=== PATIENT | male | born 1945 | race Caucasian/White ===

== ENCOUNTER 2016-08-16 01:27 | Day surgery (SDC) | payer MEDICARE ==
[~2016-08-16] VITALS: Ht 177.8 cm; Wt 106.8 kg
[~2016-08-16 01:27] MED LIST: ACET325T51 PO; ASCO100089 PO; BIOT5CAP9 PO; CARB1TAB37 PO; CARV25TA2 PO; CHOL5000 PO; DOCU250C2 PO; FINA5TAB9 PO; FOLI0.8T PO; HYDR25TA4 PO; OMEG-38 PO; POTA10TA7 PO; TEST200V IM; TEST200V20 IM; TOLT4CAP13 PO; WARF2.5T82 PO; WARF5TAB7 PO; ZYL100 PO; [UNRECOGNIZED DRUG - CODE] MC
[2016-08-16] MEDS ORDERED: Sodium Chloride LOK Flush 10 mL Syringe IV PRN (06:00)
[2016-08-16] MEDS ORDERED: 0.9% Sodium Chloride 1,000 ML IV SCH (06:00)
[2016-08-16] MEDS ORDERED: fentaNYL-PF 50 mCg/mL 2 mL Inj IVPUSH PRN (06:00)
[2016-08-16 07:23] VITALS: BP 171/111; PULSE 69; RESP 14; O2SAT 97
[2016-08-16] MEDS ORDERED: ALBU8.5H2 INHALATION (07:33)
[2016-08-16 07:41] VITALS: BP 161/98
[2016-08-16 08:40] VITALS: BP 154/100; PULSE 76; RESP 16; O2SAT 93
[2016-08-16 08:50] VITALS: BP 161/97; PULSE 73; RESP 16; O2SAT 96
--- NOTE | 2016-08-16 20:18 | ENDO ---
[address] [address] ENDOSCOPY PROCEDURE PATIENT: RAVI GREEN : 1945 MR#: [id number] ADMIT: 08/16/2016 JOB ID: [id number] DATE OF SERVICE: 08/16/2016 PRIMARY PROVIDER: Wallace Villavicencio MD. PROCEDURE: Colonoscopy with cold forceps polypectomy. INDICATIONS: A 71-year-old male with a personal history of colon cancer and colon polyps returning for surveillance. EQUIPMENT: PCF H 180 AL. SEDATION: 3 mg Versed, 75 mcg fentanyl. COMPLICATIONS: None identified. BOWEL PREPARATION: Fair. Adequate exam. PROCEDURE IN DETAIL: After the risks and benefits were explained, written and verbal informed consent was obtained. The patient was brought into the endoscopy suite and placed into the left lateral decubitus position. Sedation was achieved using the above-stated medications with the addition of oxygen via nasal cannula. A digital rectal examination was accomplished and did not elicit any obvious anorectal pathology apart from some mild internal hemorrhoids. The scope was introduced into the rectum and advanced under direct visualization to the level of the cecum, as identified by the appendiceal orifice and ileocecal valve. The scope was slowly withdrawn to carefully examine the mucosa for any defects or lesions. Retroflexed views were avoided in the rectum. Multiple direct views were made through the dentate line for exclusion of pathology. The colon was decompressed, the scope removed from the patient who tolerated the procedure well. FINDINGS: The patient had rather extensive diverticulosis through the left colon. The sigmoid anastomosis was widely patent. In the transverse, there was a diminutive polyp, perhaps 4 mm, removed with cold forceps. No other pathology identified throughout apart from moderate internal hemorrhoids. ENDOSCOPIC DIAGNOSES: 1. Colon polyp. 2. Patent anastomosis. 3. Diverticulosis. 4. Hemorrhoids. RECOMMENDATIONS: 1. Await histopathology. 2. If the polyp is an adenoma, repeat colonoscopy in one year. If this is hyperplastic, repeat colonoscopy in three years. 3. The patient is encouraged to take 2 tablespoons of ground flaxseed fiber mixed with 8 ounces of water or juice at least once daily. He is encouraged to try to incorporate organic sour kraut into his regular dietary stream. Beyond this, if this does not improve stool elimination, he may need to add in a little bit of MiraLAX on a regular basis.
--- NOTE | 2016-08-24 15:49 | PATH ---
SURGICAL PATHOLOGY Attending Physician:Mary Najera CASE STATUS: Signed Out * Amended * PATIENT NAME: RAVI GREEN PID: [id number] : 1945 DATE COLLECTED:08/16/2016 20:05 SPECIMEN: Colon, Biopsy CLINICAL HISTORY: 1). TRANSVERSE COLON POLYP FINAL DIAGNOSIS: Transverse Colon, Polyp, Biopsy: Tubular adenoma; negative for high-grade dysplasia. ICD10 K63.5 This case was reviewed and interpreted by Dr. More Singletary. The final diagnosis is unchanged. This amendment is issued in order for the report to cross the interface and be available in the hospital electronic medical record. GROSS DESCRIPTION: The specimen is received in one formalin filled container labeled with the patient's name, sublabeled "transverse colon polyp" and consists of a 0.3 x 0.3 x 0.3 CM portion of tissue which is entirely submitted in one cassette. 08/16/2016 [facility] ICD-9 CODES: CPT CODES: 1: 32712 AMENDMENT(S): Amended: 08/24/2016 by Yumiko Caldwell Reason:Miscellaneous The final diagnosis is unchanged. This amendment is issued in order for the report to cross the interface and be available in the hospital electronic medical record. Previous Signout Date: 08/17/2016 Electronically Signed Out Aparna El MD [facility] Pathology [facility] [address], [place] [address] Technical component performed at [facility], [address] [place] [address] Ave[address], [address]
[2016-08-31] MEDS ORDERED: BIOT5000 PO (15:19)
[2016-08-31] MEDS ORDERED: GLUTATHIONE RC (15:20)
[2016-08-31] MEDS ORDERED: [UNRECOGNIZED DRUG - CODE] IJ (15:20)
[2016-08-31] MEDS ORDERED: CARV25TA2 PO (15:20)
[2016-08-31] MEDS ORDERED: TAMS0.4C98 PO (15:20)
[2016-08-31] MEDS ORDERED: SOLI5TAB2 PO (15:20)
[2016-08-31] MEDS ORDERED: TEST200V20 IM (15:24)
== END 2016-08-16 23:59 | disposition home or self-care (01) ==
LOC: END 01:27
PROVIDERS: ATTEND Internal Medicine Gastroenterology
DX: Z12.11 Encounter for screening for malignant neoplasm of colon (principal); D12.3 Benign neoplasm of transverse colon; Z85.038 Personal history of other malignant neoplasm of large intestine; Z86.010 Personal history of colon polyps; Z98.0 Intestinal bypass and anastomosis status; K57.30 Diverticulosis of large intestine without perforation or abscess without bleeding; K64.8 Other hemorrhoids; I12.9 Hypertensive chronic kidney disease with stage 1 through stage 4 chronic kidney disease, or unspecified chronic kidney disease; I48.91 Unspecified atrial fibrillation; G20 Parkinson's disease; N18.3 Chronic kidney disease, stage 3 (moderate)
CPT/HCPCS: 45380; 88305; 99153; G0500; J7030